=== PATIENT | male | born 1985 | race Caucasian/White ===

== ENCOUNTER 2022-03-24 00:09 | Day surgery (SDC) | payer OTHER, SELFPAY ==
[2022-03-18 12:04] VITALS: BMI 34.9
[2022-03-24 11:05] VITALS: BP 137/88; PULSE 58; RESP 18; TEMP 36.1; O2SAT 95; BMI 34.6
[2022-03-24] MEDS: LACTATED RINGERS 1,000 ML 150 ML IV CONT (11:27)
--- NOTE | 2022-03-24 11:47 | P.PNAN_ITS ---
Anes - Initial Pre Proc Eval Procedure: Operation Date: 03/24/22 12:30 Proposed Procedures p Screening Colonoscopy - En Montalvo MD Date/Time: 03/24/22 11:47 Surgeon: En Montalvo MD Pre Op Diagnosis: family hx of colon ca Patient Data Age: 36 Gender: M Height: 1.73 m Weight: 103.3 kg Last Vital Signs Temp 96.9 F L 03/24/22 11:05 Pulse 58 L 03/24/22 11:05 Resp 18 03/24/22 11:05 BP 137/88 03/24/22 11:05 Pulse Ox 95 03/24/22 11:05 O2 Del Method Room Air 03/24/22 11:05 Allergies Allergy/AdvReac Type Severity Reaction Status Date / Time No Known Allergies Allergy Verified 03/24/22 11:17 Home Medications Medication Instructions Recorded Confirmed Type devantedha root extract 1 cap PO DAILY 03/18/22 03/24/22 History melatonin 10 mg tablet 10 mg PO HS 03/18/22 03/24/22 History propranolol 10 mg tablet 20 mg PO DAILY 03/18/22 03/24/22 History sertraline 50 mg tablet 50 mg PO DAILY 03/18/22 03/24/22 History Patient hx anesthesia problems: none Family hx anesthesia problems: none Results Review: All pre-operative results and documents have been reviewed as part of the pre- operative evaluation. [facility] Social History Social History Smoking status: Never smoker Alcohol intake: current Substance use: never Substance use type: does not use Living arrangements: with family Spiritual care concerns: No Anes - Eval Final PreProcedure Day of Procedure 03/24/22 11:47 Patient weight: obese Heart: regular rate and rhythm Lungs: clear to auscultation Airway: Mallampati scale class II Neurological: alert and oriented Last oral intake: >/= 8 hours ASA classification: II Emergent: no Anesthetic plan: proceed Anesthesia type and monitoring: general GIVS and standard monitoring Results Review: All pre-operative results and documents have been reviewed as part of the pre- operative evaluation. Informed Consent: The patient's anesthetic plan and its attendant risks and benefits were discussed with the patient/family/POA. Questions were solicited and answers provided to the satisfaction of the patient/family/POA.
--- NOTE | 2022-03-24 12:15 | PM.HPGS ---
History of Present Illness History of Present Illness Consent: Risks, benefits, and alternatives have been discussed and questions answered. Patient agrees to proceed with procedure. Chief complaint: family hx of colon ca Narrative: Tyler Ruff is a 36 year old male with mother and uncle had colon cancer, brother with Lang syndrome. His last colonoscopy 2019 Review of Systems Constitutional: Constitutional: Denies headache(s) and Denies weakness Eyes: Eyes: Denies blurry vision ENT: Reports Normal hearing present, Denies headache(s) and Denies neck pain Cardiovascular: Cardiovascular: Denies chest pain and Denies dyspnea Respiratory: Respiratory: Denies dyspnea Gastrointestinal: Gastrointestinal: Reports no additional gastrointestinal complaints Genitourinary: Genitourinary: Denies dysuria Musculoskeletal: Musculoskeletal: Denies neck pain Integumentary/Breasts: Skin/Breast: Denies dry skin Neurologic: Reports Normal hearing present, Denies headache(s) and Denies weakness Psychiatric: Psychiatric: Denies anxiety Endocrine: Endocrine: Denies change in body appearance Hematologic/Lymphatic: Hematologic/Lymphatic: Denies easy bleeding Allergic/Immunologic: Allergic/Immunologic: Denies urticaria PMFSH Past Medical History Medical History (Updated 03/24/22 @ 12:17 by En Montalvo MD) Family history of colon cancer Social History Social History Smoking status: Never smoker Alcohol intake: current Substance use: never Substance use type: does not use Living arrangements: with family Spiritual care concerns: No Meds Home Medications and Allergies Home Medications Medication Instructions Recorded Confirmed Type devantedha root extract 1 cap PO DAILY 03/18/22 03/24/22 History melatonin 10 mg tablet 10 mg PO HS 03/18/22 03/24/22 History propranolol 10 mg tablet 20 mg PO DAILY 03/18/22 03/24/22 History sertraline 50 mg tablet 50 mg PO DAILY 03/18/22 03/24/22 History Allergies Allergy/AdvReac Type Severity Reaction Status Date / Time No Known Allergies Allergy Verified 03/24/22 11:17 Vital Signs Vital Signs - 24 hr 03/24/22 11:05 Temperature 96.9 F L Pulse Rate 58 L Respiratory Rate 18 Blood Pressure 137/88 Pulse Oximetry 95 Oxygen Delivery Room Air Exam Const: General: comfortable and no acute distress HENMT: General nose exam: Normal nares present Eyes: General: appearance normal, both eyes and all related structures Neck: Neck: no JVD Resp: Auscultation: clear to auscultation bilaterally Cardio: Rate: regular rate Rhythm: regular rhythm GI: Inspection: non-distended GI Palp: Yes Soft to palpation Skin: General skin exam: normal color Neuro: General: gait normal Speech: normal speech Extrem: General: normal to inspection Psych: Mental Status: mental status grossly normal Assessment and Plan Assessment and plan (1) Family history of colon cancer: Code(s): Z80.0 - Family history of malignant neoplasm of digestive organs Status: Acute Assessment and Plan: colonoscopy
[2022-03-24 12:34] VITALS: BP 90/52; PULSE 68; RESP 28; O2SAT 93
[2022-03-24 12:44] VITALS: BP 104/70; PULSE 62; RESP 22; O2SAT 96
[2022-03-24 12:54] VITALS: BP 111/76; PULSE 61; RESP 20; O2SAT 96
== END 2022-03-24 13:16 | disposition home or self-care (01) ==
PROVIDERS: Visit Provider Internal Medicine Gastroenterology
PROC: 0DJD8ZZ Inspection of Lower Intestinal Tract, Via Natural or Artificial Opening Endoscopic (ICD-10-PCS; CPT 45378; principal; 2022-03-24 12:30)
DX: Z12.11 Encounter for screening for malignant neoplasm of colon (principal); Z80.0 Family history of malignant neoplasm of digestive organs; E66.9 Obesity, unspecified; Z68.34 Body mass index [BMI] 34.0-34.9, adult
CPT/HCPCS: 45378; J2704; J7120

== ENCOUNTER 2024-06-09 00:36 | Day surgery (SDC) | payer OTHER, SELFPAY ==
[2024-05-26 12:12] VITALS: BMI 20.7
[2024-06-09 11:50] VITALS: BP 144/109; PULSE 96; RESP 18; TEMP 36.2; O2SAT 97; BMI 35.7
[2024-06-09] MEDS: LACTATED RINGERS 1,000 ML 150 ML IV CONT (11:57)
--- NOTE | 2024-06-09 12:03 | WPDANESEPPF ---
Anes - Initial Pre Proc Eval Procedure: Operation Date: 06/09/24 13:00 Proposed Procedures p Screening Colonoscopy - En Montalvo MD Date/Time: 06/09/24 12:03 Surgeon: En Montalvo MD Pre Op Diagnosis: family hx of cancer Patient Data Age: 38 Gender: M Height: 1.73 m Weight: 106.7 kg Last Vital Signs Temp 36.2 C L 06/09/24 11:50 Pulse 96 06/09/24 11:50 Resp 18 06/09/24 11:50 BP 144/109 H 06/09/24 11:50 Pulse Ox 97 06/09/24 11:50 O2 Del Method Room Air 06/09/24 11:50 Allergies Allergy/AdvReac Type Severity Reaction Status Date / Time No Known Allergies Allergy Verified 06/09/24 11:49 Home Medications Medication Instructions Recorded Confirmed Type sertraline 50 mg tablet 50 mg PO DAILY 03/18/22 06/09/24 History atorvastatin 20 mg tablet 20 mg PO DAILY 05/26/24 06/09/24 History bupropion HCl 150 mg 24 hr tablet, 150 mg PO DAILY 05/26/24 06/09/24 History extended release Patient hx anesthesia problems: none Family hx anesthesia problems: none Results Review: All pre-operative results and documents have been reviewed as part of the pre-operative evaluation. [facility] Past Medical History Medical History (Updated 06/09/24 @ 12:03 by Randolph Andrade MD) Family history of colon cancer HTN (hypertension) Obesity MARY on CPAP Surgical History Surgical History (Updated 06/09/24 @ 12:04 by Randolph Andrade MD) H/O colonoscopy Social History Social History Smoking status: Current every day smoker Tobacco type: smokeless tobacco Alcohol intake: current Drinks per week: 4 Substance use: never Substance use type: does not use Living arrangements: alone Spiritual care concerns: No Anes - Eval Final PreProcedure Day of Procedure 06/09/24 12:03 Patient weight: obese Heart: regular rate and rhythm Lungs: clear to auscultation Airway: Mallampati scale class II Neurological: alert and oriented Last oral intake: >/= 8 hours ASA classification: III Emergent: no Anesthetic plan: proceed Anesthesia type and monitoring: general GIVS and standard monitoring Results Review: All pre-operative results and documents have been reviewed as part of the pre-operative evaluation. Informed Consent: The patient's anesthetic plan and its attendant risks and benefits were discussed with the patient/family/POA. Questions were solicited and answers provided to the satisfaction of the patient/family/POA.
--- NOTE | 2024-06-09 12:40 | PM.HPGS ---
History of Present Illness History of Present Illness Consent: Risks, benefits, and alternatives have been discussed and questions answered. Patient agrees to proceed with procedure. Chief complaint: family hx of cancer Narrative: Tyler Ruff is a 38 year old male with mother and uncle had colon cancer, brother with Lang syndrome. Last colonoscopy 2021 Review of Systems Review of Systems: All systems reviewed & are unremarkable except as noted in HPI and below PMFSH Past Medical History Medical History (Updated 06/09/24 @ 12:03 by Randolph Andrade MD) Family history of colon cancer HTN (hypertension) Obesity MARY on CPAP Surgical History Surgical History (Updated 06/09/24 @ 12:04 by Randolph Andrade MD) H/O colonoscopy Social History Social History Smoking status: Current every day smoker Tobacco type: smokeless tobacco Alcohol intake: current Drinks per week: 4 Substance use: never Substance use type: does not use Living arrangements: alone Spiritual care concerns: No Meds Home Medications and Allergies Home Medications Medication Instructions Recorded Confirmed Type sertraline 50 mg tablet 50 mg PO DAILY 03/18/22 06/09/24 History atorvastatin 20 mg tablet 20 mg PO DAILY 05/26/24 06/09/24 History bupropion HCl 150 mg 24 hr tablet, 150 mg PO DAILY 05/26/24 06/09/24 History extended release Allergies Allergy/AdvReac Type Severity Reaction Status Date / Time No Known Allergies Allergy Verified 06/09/24 11:49 Vital Signs Vital Signs - 24 hr 06/09/24 11:50 Temperature 97.2 F L Pulse Rate 96 Respiratory Rate 18 Blood Pressure 144/109 H Pulse Oximetry 97 Oxygen Delivery Room Air Exam Const: General: comfortable and no acute distress HENMT: Face/Nose/Sinus: Normal nares present Eyes: General: appearance normal, both eyes and all related structures Neck: Neck: no JVD Resp: Auscultation: clear to auscultation bilaterally Cardio: Rate: regular rate Rhythm: regular rhythm GI: Inspection: non-distended GI Palp: Yes Soft to palpation Skin: General skin exam: normal color Neuro: General: gait normal Speech: normal speech Extrem: General: normal to inspection Psych: Mental Status: mental status grossly normal Assessment and Plan Assessment and plan (1) Family history of colon cancer: Code(s): Z80.0 - Family history of malignant neoplasm of digestive organs Status: Acute Assessment and Plan: colonoscopy
[2024-06-09 12:57] VITALS: BP 134/84; PULSE 93; RESP 20; O2SAT 100
[2024-06-09 13:07] VITALS: BP 130/74; PULSE 82; RESP 20; O2SAT 100
[2024-06-09 13:17] VITALS: BP 134/82; PULSE 87; RESP 18; O2SAT 100
== END 2024-06-09 13:22 | disposition home or self-care (01) ==
PROVIDERS: Visit Provider Internal Medicine Gastroenterology
PROC: 0DJD8ZZ Inspection of Lower Intestinal Tract, Via Natural or Artificial Opening Endoscopic (ICD-10-PCS; CPT 45378; principal; 2024-06-09 13:00)
DX: Z12.11 Encounter for screening for malignant neoplasm of colon (principal); I10 Essential (primary) hypertension; G47.33 Obstructive sleep apnea (adult) (pediatric); F17.220 Nicotine dependence, chewing tobacco, uncomplicated; E66.9 Obesity, unspecified; Z68.35 Body mass index [BMI] 35.0-35.9, adult; Z99.89 Dependence on other enabling machines and devices; Z80.0 Family history of malignant neoplasm of digestive organs
CPT/HCPCS: 45378; J2003; J2704; J7120